=== PATIENT | female | born 1975 | race Caucasian/White ===

== ENCOUNTER 2019-11-08 21:45 | Inpatient (IN) | payer MEDICAID ==
[~2019-11-08] VITALS: Ht 162.6 cm; Wt 113.3 kg
[~2019-11-08 21:45] MED LIST: CLIN300C8; METFORMIN 500MG TABLETS
[2019-11-08 22:50] LABS: Hematocrit 44.5 % (36.0-46.0); Hemoglobin 14.6 g/dL (12.2-16.2); Mean Corpuscular Hemoglobin 29.6 pg (28.0-32.0); Mean Corpuscular Hgb Conc. 32.7 g/dL (32.0-36.0); Mean Corpuscular Volume 90.4 fL (80.0-100.0); Platelet Count (auto) 271 10^3/uL (140-450); Red Blood Cells 4.92 10^6/uL (4.0-5.20); Red Cell Distribution Width 13.5 % (11.8-14.3); White Blood Cell 26.5 10^3/uL (4.4-10.8)
[2019-11-08 22:53] LABS: Basophils % (manual) 0 (0.0-2.0); Blast Cells 0; Eosinophils % (manual) 0 (0-7); Metamyelocytes % 0; Myelocytes % 0; Promyelocytes % 0; Reactive Lymphocytes 0
[2019-11-08] MEDS ORDERED: ONDANSETRON HCL 4 MG/2 ML VIAL IV ONE (23:00)
[2019-11-08] MEDS ORDERED: SODIUM CHLORIDE 0.9% 1,000 ML IV ONE (23:00)
[2019-11-08 23:11] LABS: Albumin 3.2 g/dL (3.4-5.0); BUN/Creatinine Ratio 12.8; Calcium 9.1 mg/dL (8.5-10.1); Potassium 3.5 mmol/L (3.5-5.1)
[2019-11-08 23:14] LABS: Bilirubin, Total 0.4 mg/dL (0.2-1.0); Total Protein 7.7 g/dL (6.4-8.2)
[2019-11-08 23:15] LABS: Band Neutrophils % (manual) 13; Lymphocytes % (manual) 9 (10.0-50.0); Monocytes % (manual) 3 (0-12)
[2019-11-08 23:54] LABS: Urine Bacteria NONE SEEN /hpf (None Seen); Urine Blood 1+ /uL (Negative); Urine Specific Gravity 1.012 (1.001-1.035); Urine WBC 20 /hpf (0 - 5)
[2019-11-09] MEDS ORDERED: PIPERACILLIN-TAZOB 3.375GM 100 ML IV ONE (00:45)
[2019-11-09] MEDS ORDERED: SODIUM CHLORIDE 0.9% 1,000 ML IV ONE ×2 (00:45→14:45)
[2019-11-09] MEDS ORDERED: VANCOMYCIN 1GM/250ML 250 ML IV ONE ×2 (00:45→18:00)
[2019-11-09 01:04] LABS: Lactic Acid w/Reflex 2.8 mmol/L (0.4-2.0)
[2019-11-09] MEDS ORDERED: SODIUM CHLORIDE 0.9% 2,700 ML IV ONE (01:45)
[2019-11-09] MEDS ORDERED: SODIUM CHLORIDE 0.9% 700 ML IV ONE (02:15)
[2019-11-09] MEDS ORDERED: NITROGLYCERIN 0.4 MG SL TAB SL PRN (03:00)
[2019-11-09] MEDS ORDERED: MORPHINE SULF INJ 2 MG/ML SYRINGE 1ML IV PRN (03:00)
[2019-11-09] MEDS ORDERED: ONDANSETRON HCL 4 MG/2 ML VIAL IV PRN (03:00)
[2019-11-09] MEDS: SODIUM CHLORIDE 0.9% 1,000 ML IV SCH ×4 (04:38→22:45)
[2019-11-09 05:25] VITALS: BP 116/73
--- NOTE | 2019-11-09 05:25 | NUR ---
Telemetry admit from ER [facility] admitted to Telemetry unit. Patient oriented to SHIVA PEREZ, primary RN, unit, room, bed, and unit policies regarding patient care and visiting hours. Patient now on continuous telemetry monitoring, tele box #2, weighed by bedscale and encouraged to call if they need something. All questions and concerns addressed, patient verbalized understanding. pt is aox4,no s/s of distress or sob
[2019-11-09] MEDS: LEVOTHYROXINE SODIUM 25 MCG TAB PO SCH (05:49)
[2019-11-09] MEDS: HYDROcodone-ACET 5/325MG TAB PO PRN ×3 (05:50→23:00)
[2019-11-09] MEDS ORDERED: GLIP10TA9 PO (06:42)
[2019-11-09] MEDS ORDERED: VENL37.511 PO (06:59)
[2019-11-09] MEDS ORDERED: SIMV-13 PO (06:59)
[2019-11-09] MEDS ORDERED: LISI-648 PO (06:59)
[2019-11-09] MEDS ORDERED: CHOL20007 PO (06:59)
[2019-11-09] MEDS ORDERED: LEVO25TA6 PO (06:59)
[2019-11-09] MEDS ORDERED: METH500T22 PO (06:59)
[2019-11-09] MEDS ORDERED: CANA100T OR (06:59)
[2019-11-09] MEDS ORDERED: FLUO-125 PO (06:59)
[2019-11-09] MEDS ORDERED: CYCL10TA6 PO (06:59)
[2019-11-09] MEDS ORDERED: [UNRECOGNIZED DRUG - CODE] TD (06:59)
[2019-11-09] MEDS ORDERED: ERGO2000 PO (07:02)
[2019-11-09] MEDS ORDERED: cefTRIAXone 1GM/50ML D5W 50 ML IV SCH (09:00)
[2019-11-09 09:10] VITALS: BP 83/50
[2019-11-09] MEDS: FAMOTIDINE 20 MG TAB PO SCH ×2 (09:44→22:49)
[2019-11-09] MEDS ORDERED: LISINOPRIL 10 MG TAB PO SCH (10:00)
[2019-11-09 13:16] VITALS: BP 90/64
[2019-11-09] MEDS ORDERED: DEXTROSE (50%) 50ML SYRG IV PRN (14:45)
[2019-11-09] MEDS ORDERED: VANCOMYCIN PER PHARMACY 0 MG IV SCH (14:45)
[2019-11-09] MEDS: MEROPENEM 1GM IVPB 100 ML IV SCH ×2 (15:07→22:49)
--- NOTE | 2019-11-09 15:30 | NUR ---
REPORT GIVEN TO SALVADOR Dash FOR ICU TRANSFER. PATIENT WILL GO TO BED 208 WITH SALVADOR BAUMANN. FOR ICU STATUS.
--- NOTE | 2019-11-09 15:37 | NUR ---
TAKEN TO INTELLIGENCE OFFICER BASIC VIA BED NO SIGNS OF DISTRESS. REPORT GIVEN TO JAIME Abebe
[2019-11-09] MEDS: ACETAMINOPHEN 325 MG TAB PO PRN (15:48)
--- NOTE | 2019-11-09 15:55 | NUR ---
SALVADOR Dash ICU NURSE SAID ONCE NEPHROSTOMY TUBE IS PLACED PATIENT WILL BE TELE STATUS. I INFORMED ARGELIA MOORE R.N HE SAID TO CALL DR Ute GOODRICH FOR ORDERS. I PAGED DR GOODRICH TO SEE OF PATIENT IS GOING TO CONTINUE WITH ICU STATUS OR TRANSFER BACK TO TELE. AWAITING CALL BACK FROM
[2019-11-09 15:58] LABS: Basophils # (auto) 0.1 10 ^3/uL (0-0.2); Basophils % (auto) 0.4 % (0.0-2.0); Eosinophils # (auto) 0.1 10 ^3/uL (0-0.8); Eosinophils % (auto) 0.7 % (0.0-7.0); Hematocrit 41.8 % (36.0-46.0); Hemoglobin 13.5 g/dL (12.2-16.2); Lymphocytes # (auto) 0.9 10 ^3/uL (0.4-5.4); Lymphocytes % (auto) 6.1 % (10.0-50.0); Mean Corpuscular Hemoglobin 29.3 pg (28.0-32.0); Mean Corpuscular Hgb Conc. 32.2 g/dL (32.0-36.0); Mean Corpuscular Volume 91.1 fL (80.0-100.0); Monocytes # (auto) 0.6 10 ^3/uL (0-1.3); Monocytes % (auto) 3.8 % (0.0-12.0); Neutrophils # (auto) 13.9 10 ^3/uL (1.6-8.6); Platelet Count (auto) 202 10^3/uL (140-450); Red Blood Cells 4.59 10^6/uL (4.0-5.20); Red Cell Distribution Width 13.4 % (11.8-14.3); White Blood Cell 15.6 10^3/uL (4.4-10.8)
[2019-11-09 16:15] LABS: BUN/Creatinine Ratio 12.9; Calcium 8.3 mg/dL (8.5-10.1); Potassium 3.9 mmol/L (3.5-5.1)
[2019-11-09 16:16] LABS: INR 1.02 (0.9-1.15)
[2019-11-09 16:23] LABS: Cholesterol 126 mg/dL (< 200); HDL Cholesterol 7 mg/dL (40-59); Triglycerides 433 mg/dL (< 150)
--- NOTE | 2019-11-09 16:52 | NUR ---
SPOKE TO DR Ute GOODRICH. HE SAID PATIENT IS ICU STATUS AND 2 HOURS AFTER NEPHROSTOMY TUBE IS PLACED ICU NURSE CAN CALL HIM WITH AN UPDATE AND HE WILL DECIDE IF PATIENT CAN BE DOWNGRADED.
[2019-11-09] MEDS ORDERED: LIDOCAINE 2%HCL (LOCAL ANESTH.) INJ 20ML MDV ONE ×4 (17:02→20:35)
[2019-11-09] MEDS ORDERED: fentaNYL CITRATE 100 MCG/2 ML VL ONE ×2 (17:03→20:39)
[2019-11-09] MEDS ORDERED: MIDAZOLAM HCL 1MG/1ML-2 ML VIAL ONE ×2 (17:04→20:40)
[2019-11-09] MEDS ORDERED: diphenhdrAMINE HCL 50 MG/1 ML VL ONE (18:38)
[2019-11-09] MEDS ORDERED: IODIXANOL 320MG/ML 100ML BTL IV ONE (20:35)
--- NOTE | 2019-11-09 21:20 | NUR ---
Fuentes from [facility]. said if still bloody by Tuesday to call Dr. Bateman.
--- NOTE | 2019-11-09 22:10 | NUR ---
Report called to Lanie BAUMANN. RN updated on pt's current condition including vital signs and procedural outcome. RN updated on operative findings. All questions answered at this time. Pt awaiting transport to assigned room.Pt remains aaox4 with respirations even and unlabored. BP 136/85,RR 20, spo2 97%RA,HR 105 Sinus tachycardia.
--- NOTE | 2019-11-09 22:20 | NUR ---
Received patient from Cath. lab. status post Nephrostomy placement in the right side , dressing in the back dry and intact, draining bloody minimal output.
[2019-11-09] MEDS: TEMAZEPAM 15 MG CAP PO PRN (23:01)
[2019-11-09] MEDS: InsuLIN REG 1unit/0.01ml Soln (100units/ml) SC SCH (23:48)
[2019-11-09] MEDS: ACCU-CHEK COMFORT CURVE STRIP VI SCH (23:48)
--- NOTE | 2019-11-10 03:00 | NUR ---
Empty the nephrostomy bag with 220cc output bloody.
[2019-11-10] MEDS: HYDROcodone-ACET 5/325MG TAB PO PRN ×4 (03:06→18:03)
[2019-11-10 05:00] VITALS: BP 123/67
[2019-11-10] MEDS: ACCU-CHEK COMFORT CURVE STRIP VI SCH ×4 (05:42→23:42)
[2019-11-10] MEDS: VANCOMYCIN 1GM/250ML 250 ML IV SCH ×2 (05:42→18:04)
[2019-11-10] MEDS: MEROPENEM 1GM IVPB 100 ML IV SCH ×2 (05:42→15:53)
[2019-11-10] MEDS: InsuLIN REG 1unit/0.01ml Soln (100units/ml) SC SCH ×4 (05:53→23:42)
[2019-11-10] MEDS: LEVOTHYROXINE SODIUM 25 MCG TAB PO SCH (05:54)
[2019-11-10 06:03] LABS: Basophils # (auto) 0.1 10 ^3/uL (0-0.2); Basophils % (auto) 0.4 % (0.0-2.0); Eosinophils # (auto) 0.2 10 ^3/uL (0-0.8); Eosinophils % (auto) 1.4 % (0.0-7.0); Hematocrit 37.2 % (36.0-46.0); Hemoglobin 12.2 g/dL (12.2-16.2); Lymphocytes # (auto) 1.6 10 ^3/uL (0.4-5.4); Lymphocytes % (auto) 13.6 % (10.0-50.0); Mean Corpuscular Hgb Conc. 32.8 g/dL (32.0-36.0); Mean Corpuscular Volume 91.4 fL (80.0-100.0); Monocytes # (auto) 0.6 10 ^3/uL (0-1.3); Monocytes % (auto) 5.3 % (0.0-12.0); Neutrophils # (auto) 9.2 10 ^3/uL (1.6-8.6); Neutrophils % (auto) 79.3 % (37.0-80.0); Platelet Count (auto) 195 10^3/uL (140-450); Red Blood Cells 4.07 10^6/uL (4.0-5.20); Red Cell Distribution Width 13.8 % (11.8-14.3); White Blood Cell 11.6 10^3/uL (4.4-10.8)
--- NOTE | 2019-11-10 06:05 | NUR ---
Emptied the nephrostomy tube again with 320 cc amount, total for the cell manager is 540cc bloody.
[2019-11-10 06:18] LABS: BUN/Creatinine Ratio 11.9; Calcium 8.3 mg/dL (8.5-10.1); Potassium 3.7 mmol/L (3.5-5.1)
--- NOTE | 2019-11-10 06:23 | NUR ---
Called/paged Ute Mccoy. called re:diet order . Waiting for call back. Continue care.
[2019-11-10] MEDS: SODIUM CHLORIDE 0.9% 1,000 ML IV SCH ×2 (06:45→15:54)
--- NOTE | 2019-11-10 07:24 | NUR ---
Care report given to Cara Romero, patient is resting no distress, and Dr. Garcia called back with diet order of consistent carb.1800cal, cardiac diet.
[2019-11-10] MEDS: ACETAMINOPHEN 325 MG TAB PO PRN ×2 (08:31→22:27)
--- NOTE | 2019-11-10 08:31 | NUR ---
OPENING SHIFT NOTE: PATIENT RESTING IN BED, ABLE TO DO AM CARE INDEPENDENTLY. PATIENT REPORTS HEADACHE, DESPITE NORCO FOR PAIN RELIEF. THIS RN GAVE TYLENOL PER PAIN SCALE. UPDATED ON PLAN OF CARE. THIS RN EMPTIED 150CC BLOODY DRAINAGE FROM NEPHROSTOMY TUBE. CALL LIGHT WITHIN REACH, WILL CONTINUE TO MONITOR.
[2019-11-10 09:00] VITALS: BP 135/75
[2019-11-10] MEDS ORDERED: METHOCARBAMOL 500 MG TAB PO ONE (10:00)
[2019-11-10] MEDS ORDERED: FLUoxetine HCL 20 MG CAP PO ONE (10:00)
[2019-11-10] MEDS: ENOXAPARIN SOD 30 MG/0.3 ML SYRINGE SC SCH (10:13)
[2019-11-10] MEDS: FAMOTIDINE 20 MG TAB PO SCH ×2 (10:13→21:36)
[2019-11-10] MEDS ORDERED: LISINOPRIL 10 MG TAB PO PRN (10:30)
[2019-11-10] MEDS ORDERED: KETOROLAC TROMETH 30 MG/ML 1ML VIAL IV ONE (10:30)
[2019-11-10] MEDS ORDERED: PATIENTS OWN MEDICATION (Ergocalciferol (Vitamin D2) 50,000 UNIT) PO SCH (10:45)
[2019-11-10] MEDS ORDERED: ERGOCALCIFEROL 50,000 UNIT(1.25MG) CAP PO SCH (11:00)
[2019-11-10 13:25] VITALS: BP 113/64
[2019-11-10 13:52] VITALS: BP 113/64
[2019-11-10] MEDS: CYCLOBENZAPRINE HCL 10 MG TAB PO SCH ×2 (15:53→22:00)
--- NOTE | 2019-11-10 16:11 | NUR ---
URINE SENT TO LAB FOR CULTURE. PATIENT FORGOT TO COLLECT SAMPLE FROM PRIOR VOIDING.
[2019-11-10 17:18] VITALS: BP 135/78
[2019-11-10] MEDS: OXYBUTYNIN TD SCH (18:00)
--- NOTE | 2019-11-10 18:04 | NUR ---
TOTAL OUTPUT FROM NEPHROSTOMY: 600 BLOODY DRAINAGE FROM 12-HR SHIFT.
--- NOTE | 2019-11-10 18:45 | NUR ---
CARE ENDORSED TO NOC RN.
[2019-11-10] MEDS ORDERED: levoFLOXacin 750MG 150 ML IV ONE (19:00)
--- NOTE | 2019-11-10 20:00 | NUR ---
Opening Shift Note Assumed care of patient, awake and alert. No S/S of distress/SOB or pain. Instructed on POC and to call or assist PRN, will continue to monitor for changes Q1hr and PRN.Right flank Nephrostomy in placed draining bloody color output with moderate amount this time, dressing at the back dry and intact.
[2019-11-10] MEDS: VENLAFAXINE HCL 37.5MG TABLET PO SCH (21:35)
[2019-11-10] MEDS: ATORVASTATIN 20 MG TAB PO SCH (21:35)
[2019-11-10 22:00] VITALS: BP 129/77
--- NOTE | 2019-11-10 22:22 | NUR ---
PT REFUSED CPAP AT THIS TIME. PT STATES THAT SHE WILL JUST WAIT UNTIL SHE RETURNS HOME TO WEAR CPAP. SPO2 95% RA, HR 59. NO RESPIRATORY DISTRESS NOTED. PT IS AWARE TO HAVE RT PAGED IF NEEDED.
[2019-11-11] MEDS: SODIUM CHLORIDE 0.9% 1,000 ML IV SCH ×4 (02:12→22:35)
[2019-11-11] MEDS: HYDROcodone-ACET 5/325MG TAB PO PRN ×5 (02:28→21:48)
[2019-11-11 05:19] LABS: Basophils # (auto) 0 10 ^3/uL (0-0.2); Basophils % (auto) 0.5 % (0.0-2.0); Eosinophils # (auto) 0.2 10 ^3/uL (0-0.8); Eosinophils % (auto) 2.6 % (0.0-7.0); Hematocrit 38.8 % (36.0-46.0); Hemoglobin 13.2 g/dL (12.2-16.2); Lymphocytes # (auto) 1.3 10 ^3/uL (0.4-5.4); Lymphocytes % (auto) 19.3 % (10.0-50.0); Mean Corpuscular Hemoglobin 30.7 pg (28.0-32.0); Mean Corpuscular Hgb Conc. 34.1 g/dL (32.0-36.0); Mean Corpuscular Volume 89.9 fL (80.0-100.0); Monocytes # (auto) 0.5 10 ^3/uL (0-1.3); Neutrophils # (auto) 4.8 10 ^3/uL (1.6-8.6); Neutrophils % (auto) 70.6 % (37.0-80.0); Platelet Count (auto) 223 10^3/uL (140-450); Red Blood Cells 4.32 10^6/uL (4.0-5.20); Red Cell Distribution Width 13.5 % (11.8-14.3); White Blood Cell 6.7 10^3/uL (4.4-10.8)
[2019-11-11] MEDS: CYCLOBENZAPRINE HCL 10 MG TAB PO SCH ×3 (05:34→21:31)
[2019-11-11] MEDS: InsuLIN REG 1unit/0.01ml Soln (100units/ml) SC SCH ×3 (05:35→18:00)
[2019-11-11] MEDS: ACCU-CHEK COMFORT CURVE STRIP VI SCH ×3 (05:35→18:06)
[2019-11-11] MEDS: LEVOTHYROXINE SODIUM 25 MCG TAB PO SCH (05:35)
--- NOTE | 2019-11-11 05:47 | NUR ---
Total Nephrostomy output is 750cc light bloody color.
[2019-11-11 05:59] VITALS: BP 135/85
[2019-11-11 06:10] LABS: Calcium 8.3 mg/dL (8.5-10.1); Potassium 3.7 mmol/L (3.5-5.1)
[2019-11-11 06:12] LABS: BUN/Creatinine Ratio 15.4
--- NOTE | 2019-11-11 07:07 | NUR ---
Report given to Cara Tinoco, patient is resting, no distress.
[2019-11-11 09:00] VITALS: BP 138/89
[2019-11-11] MEDS: FAMOTIDINE 20 MG TAB PO SCH ×2 (09:29→21:14)
[2019-11-11] MEDS: VENLAFAXINE HCL 37.5MG TABLET PO SCH ×2 (09:30→21:30)
[2019-11-11] MEDS: ENOXAPARIN SOD 30 MG/0.3 ML SYRINGE SC SCH (09:30)
[2019-11-11] MEDS: FLUoxetine HCL 20 MG CAP PO SCH (11:22)
[2019-11-11 13:00] VITALS: BP 113/62
--- NOTE | 2019-11-11 15:57 | NUR ---
Nutrition Assessment Notes Please refer to link for full assessment notes. Est Energy needs: 0278-0297 kcals (12-15 kcal/kgBW) Est Protein needs: 109-136 gms/day (2.0-2.5 gm/kgIBW) Will continue to monitor and reassess prn. Addendum: 11/11/19 at [address] Amended: Links added.
--- NOTE | 2019-11-11 16:58 | NUR ---
NEPHROTOMY: 850 OUT FROM NEPHROSTOMY TUBE SINCE 0700. DRAINAGE INCREASED YELLOW AND CLEAR WITH NOTABLE PINK RBC'S ALONG EDGES.
[2019-11-11 17:00] VITALS: BP 141/75
[2019-11-11] MEDS: OXYBUTYNIN TD SCH (18:00)
[2019-11-11] MEDS ORDERED: SUMAtriptan SUCCINATE 25 MG TAB PO ONE (18:30)
--- NOTE | 2019-11-11 18:41 | NUR ---
CALL FROM ARGELIA CHANG UROLOGIST: "LITHOTRIPSY MACHINE NOT AVAILABLE TOMORROW, PATIENT STABLE WITH NEPHROSTOMY TUBE, AND IS TO FOLLOW UP FOR LITHOTRIPSY OUTPATIENT AND IS CLEARED FROM UROLOGY STANDPOINT." PATIENT PLAN OF CARE IS TO BE DC'D TOMORROW WITH HOME HEALTH.
[2019-11-11] MEDS ORDERED: LEVO500T21 PO (18:42)
--- NOTE | 2019-11-11 18:48 | NUR ---
DISCHARGE HELD: PER. DR Sarah GOODRICH DISCHARGE HELD AT THIS TIME UNTIL HOME HEALTH IS ARRANGED.
--- NOTE | 2019-11-11 18:49 | NUR ---
CARE ENDORSED TO NOC RN.
[2019-11-11] MEDS: ATORVASTATIN 20 MG TAB PO SCH (21:15)
[2019-11-11 22:00] VITALS: BP 143/95
[2019-11-11] MEDS ORDERED: levoFLOXacin 500MG 100 ML IV SCH (22:00)
[2019-11-11] MEDS: ACETAMINOPHEN 325 MG TAB PO PRN (23:44)
[2019-11-12] MEDS: InsuLIN REG 1unit/0.01ml Soln (100units/ml) SC SCH ×4 (00:30→18:00)
[2019-11-12] MEDS: ACCU-CHEK COMFORT CURVE STRIP VI SCH ×4 (00:34→18:00)
--- NOTE | 2019-11-12 00:34 | NUR ---
Care report given to Cara Vanegas.
--- NOTE | 2019-11-12 00:35 | NUR ---
Assumed care of patient, alert/oriented. Patient upset at this time, complained of flank pain. Noted nephrostomy tube intact draining to bloody output. Discussed on POC and to call as needed, patient verbalized understanding, call light within reach, will continue to monitor
[2019-11-12] MEDS: TEMAZEPAM 15 MG CAP PO PRN (00:51)
[2019-11-12] MEDS: ACETAMINOPHEN 325 MG TAB PO PRN (00:51)
[2019-11-12] MEDS: SODIUM CHLORIDE 0.9% 1,000 ML IV SCH ×2 (04:30→14:30)
--- NOTE | 2019-11-12 05:14 | NUR ---
Patient complained of migraine, per patient, [facility] and Tylenol are not working for her. Patient requested Ibuprofen instead. Paged Dr. Clayton and left a message, awaiting call back
--- NOTE | 2019-11-12 05:15 | NUR ---
Patient wanted to go home at this time. Patient felt upset about her migraine not going away. Discussed the consequences of going home AMA. Discussed POC and arrangement of Home Health today prior to discharge, patient verbalized understanding
[2019-11-12] MEDS: CYCLOBENZAPRINE HCL 10 MG TAB PO SCH ×2 (05:50→14:34)
[2019-11-12 05:52] VITALS: BP 146/84
[2019-11-12] MEDS: LEVOTHYROXINE SODIUM 25 MCG TAB PO SCH (06:48)
[2019-11-12 08:00] VITALS: BP 140/68
[2019-11-12 09:00] VITALS: BP 148/68
[2019-11-12] MEDS: FAMOTIDINE 20 MG TAB PO SCH (09:17)
[2019-11-12] MEDS: VENLAFAXINE HCL 37.5MG TABLET PO SCH (09:17)
[2019-11-12] MEDS: FLUoxetine HCL 20 MG CAP PO SCH (09:17)
[2019-11-12] MEDS: ENOXAPARIN SOD 30 MG/0.3 ML SYRINGE SC SCH (09:18)
[2019-11-12] MEDS: HYDROcodone-ACET 5/325MG TAB PO PRN ×2 (09:25→14:35)
[2019-11-12 10:05] LABS: Basophils # (auto) 0 10 ^3/uL (0-0.2); Basophils % (auto) 0.5 % (0.0-2.0); Eosinophils # (auto) 0.1 10 ^3/uL (0-0.8); Eosinophils % (auto) 1.2 % (0.0-7.0); Hemoglobin 12.1 g/dL (12.2-16.2); Lymphocytes # (auto) 1.5 10 ^3/uL (0.4-5.4); Lymphocytes % (auto) 15.9 % (10.0-50.0); Mean Corpuscular Hemoglobin 29.4 pg (28.0-32.0); Mean Corpuscular Hgb Conc. 32.8 g/dL (32.0-36.0); Mean Corpuscular Volume 89.5 fL (80.0-100.0); Monocytes # (auto) 1.1 10 ^3/uL (0-1.3); Monocytes % (auto) 11.9 % (0.0-12.0); Neutrophils # (auto) 6.7 10 ^3/uL (1.6-8.6); Neutrophils % (auto) 70.5 % (37.0-80.0); Platelet Count (auto) 254 10^3/uL (140-450); Red Blood Cells 4.13 10^6/uL (4.0-5.20); Red Cell Distribution Width 13.8 % (11.8-14.3); White Blood Cell 9.6 10^3/uL (4.4-10.8)
[2019-11-12 10:25] LABS: BUN/Creatinine Ratio 11.8; Calcium 8.4 mg/dL (8.5-10.1); Potassium 3.4 mmol/L (3.5-5.1)
[2019-11-12 13:00] VITALS: BP 131/77
[2019-11-12] MEDS ORDERED: POTASSIUM CHL 20 Meq TABLET PO ONE (16:00)
--- NOTE | 2019-11-12 16:07 | NUR ---
Assessment Patient is a 44-year-old female who is alert and oriented. Prior to admission patient lived with her roommate and functioned independently. Patient informed me she can care for her own ADLs. Per patient she will return home to her prior living arrangements post discharge and will need a [employer] Voucher. Patient informed me she has a CPAP for home use. Advised patient there is a social service consult for home health Nephrostomy tube care. Informed patient clinical information will be faxed to a contracted home health agency with health plan. Informed patient she has a right to participate in all discharge planning. Patient verbalized understanding discharge plan. Faxed clinical information to [facility] and [facility]. Per Elle with [facility] home health patient has been accepted and service to start within 24-48hrs upon d/ day. Informed PASTOR Hall. Addendum: 11/12/19 at 1608 by LOPEZ COLON Amended: Links added.
[2019-11-12 17:00] VITALS: BP 131/77
[2019-11-12] MEDS: OXYBUTYNIN TD SCH (18:00)
== END 2019-11-12 18:57 | disposition home health service (06) | DRG 720 ==
LOC: EDBD 21:45 → ER 21:54 → TELE 21:55 → TELE-EAST 11-09 05:25 → TELE-WESTW 11-09 22:46
PROVIDERS: ADMIT Nurse Practitioner; ATTEND Internal Medicine
PROC: 0T9030Z Drainage of Right Kidney with Drainage Device, Percutaneous Approach (ICD-10-PCS; principal; 2019-11-12)
PROC: BT1D1ZZ Fluoroscopy of Right Kidney, Ureter and Bladder using Low Osmolar Contrast (ICD-10-PCS; 2019-11-12)
PROC: BT41ZZZ Ultrasonography of Right Kidney (ICD-10-PCS; 2019-11-12)
DX: A41.9 Sepsis, unspecified organism (principal); N18.9 Chronic kidney disease, unspecified; E11.22 Type 2 diabetes mellitus with diabetic chronic kidney disease; E03.9 Hypothyroidism, unspecified; E87.1 Hypo-osmolality and hyponatremia; N13.8 Other obstructive and reflux uropathy; N20.2 Calculus of kidney with calculus of ureter; K42.9 Umbilical hernia without obstruction or gangrene; Z20.828 Contact with and (suspected) exposure to other viral communicable diseases; K76.0 Fatty (change of) liver, not elsewhere classified; N13.6 Pyonephrosis; I12.9 Hypertensive chronic kidney disease with stage 1 through stage 4 chronic kidney disease, or unspecified chronic kidney disease; E78.5 Hyperlipidemia, unspecified; E66.01 Morbid (severe) obesity due to excess calories; R65.21 Severe sepsis with septic shock; E87.6 Hypokalemia; M06.9 Rheumatoid arthritis, unspecified; G43.909 Migraine, unspecified, not intractable, without status migrainosus; Z68.42 Body mass index [BMI] 45.0-49.9, adult; Z87.442 Personal history of urinary calculi; Z91.19 Patient's noncompliance with other medical treatment and regimen; Z88.5 Allergy status to narcotic agent; Z88.2 Allergy status to sulfonamides; Z91.040 Latex allergy status
CPT/HCPCS: 36415; 50432; 71045; 74176; 76942; 80048; 80053; 80061; 80202; 81001; 82962; 83036; 83605; 83880; 84702; 85007; 85025; 85027; 85610; 85730; 87040; 87081; 87086; 87426; 99152; 99291; C1729; G0378; J0696; J1815; J1885; J1956; J2185; J2250; J2405; J2543; Q9967

== ENCOUNTER 2020-04-23 18:02 | Emergency (ER) | payer MEDICAID ==
[~2020-04-23] VITALS: Ht 172.7 cm; Wt 113.4 kg
[~2020-04-23 18:02] MED LIST changes: -CLIN300C8; +CYCL10TA6 PO; +ERGO2000 PO; +FLUO-125 PO; +LEVO25TA6 PO; +LEVO500T31 PO; +LISI-648 PO; -METFORMIN 500MG TABLETS; +METH500T22 PO; +SIMV-13 PO; +VENL37.511 PO; +[UNRECOGNIZED DRUG - CODE] TD
[2020-04-23] MEDS ORDERED: ONDANSETRON ODT 4 MG TAB PO ONE (18:45)
[2020-04-23] MEDS ORDERED: KETOROLAC TROMETH 30 MG/ML 1ML VIAL IV ONE (19:15)
[2020-04-23] MEDS ORDERED: SODIUM CHLORIDE 0.9% 1,000 ML IV ONE (19:15)
[2020-04-23 19:27] LABS: Basophils # (auto) 0.1 10 ^3/uL (0-0.2); Basophils % (auto) 0.9 % (0.0-2.0); Eosinophils # (auto) 0.6 10 ^3/uL (0-0.8); Eosinophils % (auto) 4.3 % (0.0-7.0); Hematocrit 44.7 % (36.0-46.0); Hemoglobin 15.2 g/dL (12.2-16.2); Lymphocytes # (auto) 3.9 10 ^3/uL (0.4-5.4); Lymphocytes % (auto) 25.9 % (10.0-50.0); Mean Corpuscular Hemoglobin 30.2 pg (28.0-32.0); Mean Corpuscular Hgb Conc. 33.9 g/dL (32.0-36.0); Monocytes # (auto) 0.9 10 ^3/uL (0-1.3); Monocytes % (auto) 5.7 % (0.0-12.0); Neutrophils # (auto) 9.4 10 ^3/uL (1.6-8.6); Neutrophils % (auto) 63.2 % (37.0-80.0); Nucleated Red Blood Cells % 0.1 %; Platelet Count (auto) 322 10^3/uL (140-450); Red Blood Cells 5.02 10^6/uL (4.0-5.20); Red Cell Distribution Width 13.6 % (11.8-14.3); White Blood Cell 14.9 10^3/uL (4.4-10.8)
[2020-04-23 19:46] LABS: Calcium 9.8 mg/dL (8.5-10.1); Potassium 3.9 mmol/L (3.5-5.1)
[2020-04-23 19:52] LABS: Albumin 3.7 g/dL (3.4-5.0); BUN/Creatinine Ratio 6.9; Bilirubin, Total 0.5 mg/dL (0.2-1.0); Total Protein 8.6 g/dL (6.4-8.2)
[2020-04-23 20:05] VITALS: BP 141/81
[2020-04-23] MEDS ORDERED: cefTRIAXone 1GM/50ML D5W 50 ML IV ONE (21:00)
[2020-04-23 23:34] LABS: Urine Bacteria FEW /hpf (None Seen); Urine Blood Negative /uL (Negative); Urine Budding Yeast FEW /hpf (None Seen); Urine Specific Gravity 1.032 (1.001-1.035); Urine WBC 2 /hpf (0 - 5)
== END 2020-04-23 23:52 | disposition left against medical advice (07) ==
LOC: ER 18:02
DX: N13.30 Unspecified hydronephrosis (principal); K76.0 Fatty (change of) liver, not elsewhere classified; I10 Essential (primary) hypertension; E11.9 Type 2 diabetes mellitus without complications; Z79.899 Other long term (current) drug therapy; Z91.040 Latex allergy status; Z20.822 Contact with and (suspected) exposure to COVID-19
CPT/HCPCS: 36415; 74176; 80053; 81001; 82150; 83690; 85025; 87426; 96361; 96374; 99284; J0696; J1885